=== PATIENT | female | born 1970 | race Caucasian/White ===

== ENCOUNTER 2023-06-13 14:11 | Emergency (ER) | payer OTHER ==
[~2023-06-13] VITALS: Ht 165.1 cm; Wt 72.6 kg
[2023-06-13 14:20] VITALS: BP_SYST 146; PULSE 78; RESP 18; TEMP 98; O2SAT 98
[2023-06-13 15:17] VITALS: BP_SYST 146; PULSE 78; RESP 18; TEMP 98; O2SAT 98
== END 2023-06-13 15:27 | disposition home or self-care (01) ==
LOC: SED 14:11
DX: S16.1XXA Strain of muscle, fascia and tendon at neck level, initial encounter (principal); S39.012A Strain of muscle, fascia and tendon of lower back, initial encounter; I10 Essential (primary) hypertension; Z79.899 Other long term (current) drug therapy; V89.2XXA Person injured in unspecified motor-vehicle accident, traffic, initial encounter; Y93.89 Activity, other specified; Y92.89 Other specified places as the place of occurrence of the external cause; Y99.8 Other external cause status
CPT/HCPCS: 99282